=== PATIENT | female | born 2000 | race Caucasian/White ===

== ENCOUNTER 2020-08-10 05:59 | Day surgery (SDC) | payer OTHER ==
[~2020-08-10] VITALS: Ht 167.6 cm; Wt 92.0 kg
[2020-08-10] MEDS ORDERED: MISOPROSTOL 200 MCG TABLET ONE (06:58)
[2020-08-10] MEDS ORDERED: EPINEPHRINE 1 MG/ML, 1ML ONE (06:58)
[2020-08-10] MEDS ORDERED: BUPIVACAINE/PF 0.25% ONE (06:58)
[2020-08-10] MEDS ORDERED: SILVER NITRATE STICK TP ONE (06:58)
[2020-08-10] MEDS ORDERED: OXYTOCIN 10 UNITS/ML, 1ML ONE (06:58)
[2020-08-10 06:59] VITALS: BP 121/79
[2020-08-10] MEDS ORDERED: METHYLERGONOVINE 0.2 MG/ML IM ONE (06:59)
[2020-08-10] MEDS ORDERED: LIDOCAINE-MPF 1%, 2ML INFIL ONE (07:00)
[2020-08-10] MEDS ORDERED: LACTATED RINGERS 1,000 ML IV SCH (07:00)
[2020-08-10] MEDS ORDERED: CHLORHEXIDINE 15 ML UDC MM ONE (07:00)
[2020-08-10 07:09] LABS: BASOPHILS % (AUTO) 1 % (0-1); EOSINOPHILS % (AUTO) 1 % (1-7); LYMPHOCYTES % (AUTO) 33 % (22-44); MEAN CORPUSCULAR HEMOGLOBIN 30.4 pg (27.0-34.8); MEAN CORPUSCULAR HGB CONC 33.2 g/dL (32.4-35.8); MEAN PLATELET VOLUME 9.8 fL (7.4-10.4); MONOCYTES % (AUTO) 7 % (2-9); NEUTROPHILS % (AUTO) 59 % (42-75); PLATELET COUNT 201 x10^3/uL (130-400); RED BLOOD COUNT 4.47 x10^6/uL (3.82-5.3); RED CELL DISTRIBUTION WIDTH 13.5 % (9.6-15.2)
[2020-08-10 07:20] LABS: MD NO
[2020-08-10] MEDS ORDERED: FENTANYL PF 100 MCG/2ML ONE ×3 (07:23→08:55)
[2020-08-10] MEDS ORDERED: MIDAZOLAM 1 MG/ML, 2ML ONE (07:23)
[2020-08-10] MEDS ORDERED: PROPOFOL 10 MG/ML, 20ML ONE (07:24)
[2020-08-10] MEDS ORDERED: PRENATAL VIT PO (07:25)
[2020-08-10] MEDS ORDERED: MEPERIDINE/PF 25MG/0.5ML IVPush PRN (07:30)
[2020-08-10] MEDS ORDERED: DIAZEPAM 5 MG/ML, 2ML IVPush PRN (07:30)
[2020-08-10] MEDS ORDERED: OXYcodone 5 MG/5 ML ORAL.SOL UDC PO PRN (07:30)
[2020-08-10] MEDS ORDERED: HYDROmorphone 1 MG/ML, 1ML INJ IVPush PRN (07:30)
[2020-08-10] MEDS ORDERED: FENTANYL PF 100 MCG/2ML IV PRN (07:30)
[2020-08-10] MEDS ORDERED: ACETAMINOPHEN 325 MG TABLET PO PRN (07:30)
[2020-08-10] MEDS ORDERED: DIPHENHYDRAMINE 50 MG/ML, 1ML IVPush PRN (07:30)
[2020-08-10] MEDS ORDERED: PROMETHAZINE 25 MG/ML, 1ML IVPush PRN (07:30)
[2020-08-10] MEDS ORDERED: ONDANSETRON 2MG/ML, 2ML IVPush PRN (07:30)
[2020-08-10] MEDS ORDERED: DEXAMETHASONE 4 MG/ML, 1ML ONE (07:43)
[2020-08-10] MEDS ORDERED: CEFAZOLIN 1,000 MG ONE (07:43)
[2020-08-10] MEDS ORDERED: ONDANSETRON 2MG/ML, 2ML ONE (07:43)
[2020-08-10] MEDS ORDERED: KETOROLAC 30 MG/1 ML ONE (07:43)
[2020-08-10] MEDS ORDERED: TRANEXAMIC ACID 100 MG/ML, 10ML ONE (07:55)
[2020-08-10] MEDS ORDERED: OXYcodone 5 MG/5 ML ORAL.SOL UDC ONE (08:55)
== END 2020-08-10 12:05 | disposition home or self-care (01) ==
LOC: OUT 05:59
PROVIDERS: ATTEND Obstetrics & Gynecology
DX: O02.1 Missed abortion (principal); E66.01 Morbid (severe) obesity due to excess calories; Z79.899 Other long term (current) drug therapy
CPT/HCPCS: 36415; 59820; 85025; 86850; 86900; 86923; 87635; 88305; J0171; J0690; J1100; J1885; J2210; J2250; J2405; J2590; J2704; J3010; J7120